=== PATIENT | male | born 1935 ===

== ENCOUNTER 2018-07-31 17:48 | Emergency (ER) | payer MEDICARE ==
[2018-07-31 17:54] VITALS: BP 169/77; PULSE 67; TEMP 98.2; O2SAT 100
--- NOTE | 2018-07-31 18:23 | C.PDOC ---
History Of Present Illness Patient is a 49 yr old male who was found wandering on the streets and a bystander called 911 as the patient seemed confused. Patient states that his name is "Kaveh Otero" but is unclear if that is his full first name (as no "Kaveh Otero" is found in our computer system....possible that Kaveh is first name and Branden is middle name. Patient states that he does not know what his last name is.). Patient states that he feels fine and has no complaints. Patient states that he is generally home alone during the day and will sometimes go out for a walk. Patient states that he thinks that his family will come and find him. [place] [employer] notified that we have an adult male in our ED that was found wandering. PMD: Unknown. Time Seen by Provider: 07/31/18 17:59 Chief Complaint (Nursing): Altered Mental Status History Per: Patient, EMS Past Medical History Reviewed: Historical Data, Nursing Documentation, Vital Signs Vital Signs: Last Vital Signs Temp 98.2 F 07/31/18 17:51 Pulse 67 07/31/18 17:51 Resp 16 07/31/18 17:51 BP 169/77 H 07/31/18 17:51 Pulse Ox 100 07/31/18 17:51 - Medical History Other PMH: Unknown--possible dementia Family History: States: Unknown Family Hx - Social History Hx Alcohol Use: No Hx Substance Use: No Review Of Systems Cardiovascular: Negative for: Chest Pain Gastrointestinal: Negative for: Abdominal Pain Physical Exam - Physical Exam Appears: Other (Patient is only alert to his first name. Does not know date or place. Healthy appearing and very pleasant.) Skin: Normal Color, Warm, Dry Head: Atraumatic Eye(s): bilateral: Normal Inspection, EOMI Ear(s): Bilateral: Normal Nose: Normal Tongue: Normal Appearing Teeth: Other (missing several teeth.) Throat: Normal Neck: Normal Lymphatic: Deferred Chest: Symmetrical Cardiovascular: Rhythm Regular Respiratory: Normal Breath Sounds, No Rales, No Rhonchi, No Wheezing Gastrointestinal/Abdominal: Normal Exam, Bowel Sounds, Soft, No Tenderness Rectal: Deferred Extremity: Normal ROM Extremity: Bilateral: Atraumatic Pulses: Left Radial: Normal, Right Radial: Normal Neurological/Psych: Normal Motor, Normal Sensation ED Course And Treatment - Laboratory Results Result Diagrams: 07/31/18 18:23 07/31/18 18:23 O2 Sat by Pulse Oximetry: 100 Medical Decision Making Medical Decision Making: Initial Impression: Adult male found wandering. I suspect that patient has dementia and got lost. Initial Plan: Will observe in the ED for now and check baseline labs. Police Dept notified. Progress Note(s): 6:54 PM - [place] [employer] at bedside evaluating patient. Disposition - Disposition Disposition Time: 18:57 Condition: FAIR Forms: [employer] (Greek) - Clinical Impression Clinical Impression: Dementia, Wandering Physician Patient Turnover Patient Signed Over To: Chace Valenzuela DO Handoff Comments: Patient endorsed to Dr. Valenzuela at 7:00 PM. Recommend continue observing until police can determine residence or family/friends can identify patient.
[2018-07-31 18:27] LABS: BASO % 0.5 % (0.0-2.0); EOS # 0.1 K/uL (0.0-0.7); EOS % 1.2 % (0.0-4.0); HEMOGLOBIN 12.7 g/dL (12.0-18.0); LYMPH # 1.7 K/uL (1.0-4.3); LYMPH % 22.2 % (20.0-40.0); MEAN CELL VOLUME 89.1 fL (80.0-94.0); MEAN CORPUSCULAR HEMOGLOBIN 29.8 pg (27.0-31.0); MEAN CORPUSCULAR HGB CONC 33.5 g/dL (33.0-37.0); MEAN PLATELET VOLUME 11.2 fL (7.2-11.7); MONO # 0.4 K/uL (0.0-0.8); MONO % 5.7 % (0.0-10.0); NEUT # 5.6 K/uL (1.8-7.0); NEUT % 70.4 % (50.0-75.0); NRBC % 0.1 % (0.0-2.0); RBC 4.25 Mil/uL (4.40-5.90); RED CELL DISTRIBUTION WIDTH 14.6 % (11.5-14.5); WHITE BLOOD COUNT 7.9 K/uL (4.8-10.8)
[2018-07-31 18:39] LABS: ALB/GLOB RATIO 1.5 (1.0-2.1); ALBUMIN 4.2 g/dL (3.5-5.0); ALT/SGPT 13 U/L (21-72); AST/SGOT 26 U/L (17-59); BLOOD UREA NITROGEN 15 mg/dL (9-20); CALCIUM 9.4 mg/dl (8.6-10.4); GFR NON-AFRICAN AMERICAN > 60
[2018-07-31 20:10] VITALS: RESP 20
== END 2018-07-31 20:09 | disposition home or self-care (01) ==
LOC: C.ER 17:48 → EDBD 17:48 → C.ER 20:09
DX: F03.90 Unspecified dementia, unspecified severity, without behavioral disturbance, psychotic disturbance, mood disturbance, and anxiety (principal); Z91.83 Wandering in diseases classified elsewhere
CPT/HCPCS: 80053; 82948; 85025; 99285; G0480